=== PATIENT | female | born 1955 | race Two or more races ===

== ENCOUNTER 2020-05-17 09:11 | Outpatient (RCR) | payer BC, SELFPAY ==
[2020-05-17] MEDS: COVID-19 VACC, MRNA(PFIZER)/PF 30 MCG/0.3 ML SYRINGE IM (07:03)
[2020-06-07] MEDS: COVID-19 VACC, MRNA(PFIZER)/PF 30 MCG/0.3 ML SYRINGE IM (07:22)
== END 2020-05-17 23:59 ==
LOC: IMMUN 09:11
PROVIDERS: Visit Provider Family Medicine
DX: Z23 Encounter for immunization (principal)
CPT/HCPCS: 0001A; 0002A; 91300